=== PATIENT | female | born 1960 | race Caucasian/White ===

== ENCOUNTER 2022-01-10 18:08 | Emergency (ER) | payer OTHER, MEDICAID ==
[~2022-01-10] VITALS: Ht 152 cm; Wt 81.0 kg
[2022-01-10 18:52] LABS: BASOPHILS % (AUTO) 0 % (0-10); EOSINOPHILS # (AUTO) 0.3 10^3/uL (0.0-0.3); EOSINOPHILS % (AUTO) 3 % (0-10); HEMATOCRIT 34 % (35-52); HEMOGLOBIN 11.2 g/dL (11.5-16.0); LYMPHOCYTES # (AUTO) 2.2 10^3/uL (1.0-4.0); LYMPHOCYTES % (AUTO) 21 % (12-44); MEAN CORPUSCULAR HEMOGLOBIN 29 pg (25-34); MEAN CORPUSCULAR HGB CONC 33 g/dL (32-36); MEAN CORPUSCULAR VOLUME 87 fL (80-99); MEAN PLATELET VOLUME 12.3 fL (9.0-12.2); MONOCYTES # (AUTO) 1.2 10^3/uL (0.0-1.0); MONOCYTES % (AUTO) 11 % (0-12); NEUTROPHILS # (AUTO) 6.7 10^3/uL (1.8-7.8); NEUTROPHILS % (AUTO) 64 % (42-75); PLATELET COUNT 173 10^3/uL (130-400); WHITE BLOOD COUNT 10.5 10^3/uL (4.3-11.0)
--- NOTE | 2022-01-10 19:10 | ED Syncope ---
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 Starting January 07 she developed sore throat. Then yesterday she developed cough which has been worsening. She has a pain or pressure in the left chest with cough. She has had fevers running 99.6 up to 101. She denies any nausea, vomiting, or diarrhea. Today she got up from her recliner during a coughing fit. She woke on her kitchen floor. She does not know how much time has passed. She has no traumatic pain and does not feel she was injured in any way. She has 1 prior remote episode of syncope several years ago. She denies any significant prodrome of lightheadedness, dizziness, chest pain, etc. She does note the coughing fit prior to the syncope. She has recently moved to the area and has not established with a primary care provider yet. She had gastric bypass surgery 2 years ago and has lost a significant amount of weight resulting in improved general health. Allergies and Home Medications Allergies Coded Allergies: Sulfa (Sulfonamide Antibiotics) (Verified Allergy, Intermediate, Rash, 01/10/22) Hives clindamycin (Verified Allergy, Intermediate, Rash, 01/10/22) Hives hydrochlorothiazide (Verified Allergy, Intermediate, Rash, 01/10/22) Hives ibuprofen (Verified Allergy, Intermediate, Rash, 01/10/22) Blood pressure changes, Hives lisinopril (Verified Allergy, Intermediate, Rash, 01/10/22) Hives Patient Home Medication List Home Medication List Reviewed: Yes Azithromycin (Azithromycin) 250 Mg Tablet, 250 MG PO DAILY Prescribed by: MAYNOR GALLAGHER on 01/10/222102 Benzonatate (Tessalon Perles) 100 Mg Capsule, 200 MG PO TID PRN for COUGH Prescribed by: MAYNOR GALLAGHER on 01/10/222102 Review of Systems Constitutional: see HPI EENTM: no symptoms reported Respiratory: see HPI Cardiovascular: see HPI Gastrointestinal: no symptoms reported Genitourinary: no symptoms reported : No Musculoskeletal: no symptoms reported Skin: no symptoms reported Psychiatric/Neurological: No Symptoms Reported Past [id number] Hx Patient Social History Tobacco Use?: No Use of E-Cig and/or Vaping dev: No Substance use?: No Alcohol Use?: No Pt feels they are or have been: No Immunizations Up To Date Influenza Vaccine Up-to-Date: No; Not Current First/Initial COVID19 Vaccinat: 2020 Second COVID19 Vaccination Cosme: 2020 Third COVID19 Vaccination Date: 2021 COVID19 Vaccine Net Fisher: GRUZOBZOR Past Medical History Surgery/Hospitalization HX: ASTHMA, OSTEOPOROSIS GASTRIC BYPASS, Surgeries: Yes Abdominal (Gastric bypass), Joint Replacement (Total left knee) Respiratory: Yes Asthma Cardiac: Yes Hypertension (Resolved with weight loss) Neurological: No : No Reproductive Disorders: No Genitourinary: No Gastrointestinal: Yes (History gastric bypass surgery) Gastroesophageal Reflux Musculoskeletal: Yes Osteoporosis, Arthritis (Left knee joint replacement) Endocrine: No HEENT: No Cancer: No Psychosocial: No Integumentary: No Physical Exam Vital Signs Vital Signs - First Documented 01/10/22 18:27 Temp 38.2 Pulse 76 Resp 16 B/P (MAP) 122/73 (89) Capillary Refill : Height, Weight, BMI Height: '" Weight: lbs. oz. kg; 35.00 BMI Method: General Appearance: No Apparent Distress, WD/WN HEENT: PERRL/EOMI, Normal ENT Inspection, Other (Oropharynx somewhat dry) Neck: Normal Inspection; No JVD Cardiovascular: Regular Rate, Rhythm, No Edema, No Murmur Respiratory: Lungs Clear, Normal Breath Sounds, No Accessory Muscle Use, Other (Dry cough. Deep breathing triggers cough.) Gastrointestinal: Normal Bowel Sounds, Non Tender, Soft Extremities: Normal Inspection, Non Tender, No Calf Tenderness, No Pedal Edema Neurologic/Psychiatric: Alert, Oriented x3, No Motor/Sensory Deficits, Normal Mood/Affect Cranial Nerves: Normal Hearing, Normal Speech Coordination/Gait: Normal Gait Motor/Sensory: No Motor Deficit Skin: Normal Color, Warm/Dry Progress/Results/Core Measures Results/Orders Lab Results Laboratory Tests Test 8/4/22 18:40 01/10/22 18:45 01/10/22 19:02 01/10/22 19:20 Range/Units Influenza Type A (RT-PCR) Not Detected Not Detecte Influenza Type B (RT-PCR) Not Detected Not Detecte SARS-CoV-2 RNA (RT-PCR) Not Detected Not Detecte White Blood Count 10.5 4.3-11.0 10^3/uL Red Blood Count 3.86 3.80-5.11 10^6/uL Hemoglobin 11.2 L 11.5-16.0 g/dL Hematocrit 34 L 35-52 % Mean Corpuscular Volume 87 80-99 fL Mean Corpuscular Hemoglobin 29 25-34 pg Mean Corpuscular Hemoglobin Concent 33 32-36 g/dL Red Cell Distribution Width 13.2 10.0-14.5 % Platelet Count 173 130-400 10^3/uL Mean Platelet Volume 12.3 H 9.0-12.2 fL Immature Granulocyte % (Auto) 0 % Neutrophils (%) (Auto) 64 42-75 % Lymphocytes (%) (Auto) 21 12-44 % Monocytes (%) (Auto) 11 0-12 % Eosinophils (%) (Auto) 3 0-10 % Basophils (%) (Auto) 0 0-10 % Neutrophils # (Auto) 6.7 1.8-7.8 10^3/uL Lymphocytes # (Auto) 2.2 1.0-4.0 10^3/uL Monocytes # (Auto) 1.2 H 0.0-1.0 10^3/uL Eosinophils # (Auto) 0.3 0.0-0.3 10^3/uL Basophils # (Auto) 0.0 0.0-0.1 10^3/uL Immature Granulocyte # (Auto) 0.0 0.0-0.1 10^3/uL Sodium Level 139 135-145 MMOL/L Potassium Level 3.7 3.6-5.0 MMOL/L Chloride Level 105 98-107 MMOL/L Carbon Dioxide Level 25 21-32 MMOL/L Anion Gap 9 5-14 MMOL/L Blood Urea Nitrogen 9 7-18 MG/DL Creatinine 0.65 0.60-1.30 MG/DL Estimat Glomerular Filtration Rate 101 BUN/Creatinine Ratio 14 Glucose Level 120 H 70-105 MG/DL Calcium Level 8.5 8.5-10.1 MG/DL Corrected Calcium 8.9 8.5-10.1 MG/DL Magnesium Level 1.9 1.6-2.4 MG/DL Total Bilirubin 0.9 0.1-1.0 MG/DL Aspartate Amino Transf (AST/SGOT) 27 5-34 U/L Alanine Aminotransferase (ALT/SGPT) 20 0-55 U/L Alkaline Phosphatase 83 40-136 U/L Myoglobin 23.7 10.0-92.0 NG/ML Troponin I < 0.028 <0.028 NG/ML C-Reactive Protein High Sensitivity 6.10 H 0.00-0.50 MG/DL Total Protein 6.3 L 6.4-8.2 GM/DL Albumin 3.5 3.2-4.5 GM/DL Urine Color YELLOW Urine Clarity CLEAR Urine pH 6.0 5-9 Urine Specific Viking 1.015 L 1.016-1.022 Urine Protein NEGATIVE NEGATIVE Urine Glucose (UA) NEGATIVE NEGATIVE Urine Ketones NEGATIVE NEGATIVE Urine Nitrite NEGATIVE NEGATIVE Urine Bilirubin NEGATIVE NEGATIVE Urine Urobilinogen >=8.0 < = 1.0 MG/DL Urine Leukocyte Esterase 1+ H NEGATIVE Urine RBC (Auto) NEGATIVE NEGATIVE Urine RBC NONE /HPF Urine WBC 2-5 /HPF Urine Squamous Epithelial Cells 2-5 /HPF Urine Crystals NONE /LPF Urine Bacteria FEW H /HPF Urine Casts NONE /LPF Urine Mucus SMALL H /LPF Urine Culture Indicated YES Prothrombin Time 15.2 H 12.2-14.7 SEC INR Comment 1.2 0.8-1.4 Activated Partial Thromboplast Time 20 L 24-35 SEC My Orders Orders - MAYNOR KELLEY MD Cbc With Automated Diff (01/10/22 18:18) Comprehensive Metabolic Panel (01/10/22 18:18) Hs C Reactive Protein (01/10/22 18:18) Ua Culture If Indicated (01/10/22 18:18) Ed Iv/Invasive Line Start (01/10/22 18:18) Monitor-Rhythm Ecg Trace Only (01/10/22 18:18) Covid 19 Inhouse Test (01/10/22 18:18) Influenza A And B By Pcr (01/10/22 18:18) Chest 1 View, Ap/Pa Only (01/10/22 19:00) Ekg Tracing (01/10/22 19:00) Protime With Inr (01/10/22 19:00) Partial Thromboplastin Time (01/10/22 19:00) O2 (01/10/22 19:00) Lipid Panel (01/11/22 06:00) Orthostatic Vital Signs (Adult (01/10/22 19:00) Magnesium (01/10/22 18:45) Myoglobin Serum (01/10/22 18:45) Troponin I [place]th (01/10/22 18:45) Ed Iv/Invasive Line Start (01/10/22 19:12) Lactated Ringers (Lr 1000 Ml Iv Solution (01/10/22 19:15) Urine Culture (01/10/22 19:02) Benzonatate Capsule (Tessalon Perles) (01/10/22 20:57) Albuterol Inhaler (Albuterol) (01/10/22 20:57) Azithromycin Tablet (Zithromax Tablet) (01/10/22 20:57) Medications Given in ED Current Medications Medications Dose Ordered Sig/Nasra Route Start Time Stop Time Status Last Admin Dose Admin Lactated Ringer's 1,000 ml @ 0 mls/hr Q0M ONCE IV 01/10/22 19:15 01/10/22 19:16 DC 01/10/22 19:36 1,000 MLS/HR Vital Signs/I&O 01/10/22 01/10/22 18:27 19:58 Temp 38.2 Pulse 76 86 106 107 Resp 16 B/P (MAP) 122/73 (89) 130/63 (85) 121/96 (104) 118/92 (101) Blood Pressure Mean: 89 Progress Progress Note : Progress Note Work-up was relatively unremarkable. Chest x-ray did suggest bronchitis. There was a modest elevation in CRP. Azithromycin was administered for possible occult pneumonia based on symptoms and elevated CRP. Albuterol inhaler was dispensed. Tessalon Perles were prescribed and administered in the ER. See discharge instructions for further discussion. COVID-19 and influenza swabs were negative. Initial ECG Impression Date: Jan 10, 2022 Initial ECG Impression Time: 19:23 Initial ECG Rate: 63 Initial ECG Rhythm: Normal Sinus Initial ECG Intervals: Normal Initial ECG Impression: Normal Comment Normal sinus rhythm with no ST elevation or depression. No abnormal intervals or axis deviation. Diagnostic Imaging Diagonstic Imaging: Xray Plain Films/CT/US/NM/MRI: chest Comments Chest x-ray viewed by me and report reviewed. See report below: NAME: JAYNE EDMONDSON REC#: [id number] PT STATUS: REG ER : 1960 PHYSICIAN: MAYNOR KELLEY MD ADMIT DATE: 01/10/22/ER Signed Date of Exam:01/10/22 CHEST 1 VIEW, AP/PA ONLY INDICATION: Cough. COMPARISON: No comparison available. FINDINGS: There is no dense alveolar consolidation. There is some mild thickening of the perihilar interstitial markings which could be chronic or could relate to a bronchitis. There is no significant effusion. There is no pneumothorax. Heart size appears appropriate without current evidence of failure. IMPRESSION: Mild central interstitial prominence which may be chronic or could conceivably relate to small airways disease such as bronchitis. There is no alveolar pneumonia or effusion. There are no findings to suggest edema. Dictated by: Dictated on workstation # [id number] Dict: 01/10/221958 Trans: 01/10/222017 [facility] [id number] Interpreted by: JENARO CONTRERAS MD Electronically signed by: JENARO CONTRERAS MD 01/10/222017 Departure Impression Primary Impression: Acute bronchitis Qualified Codes: J20.9 - Acute bronchitis, unspecified Additional Impressions: Syncope Qualified Codes: R55 - Syncope and collapse Atypical chest pain Disposition: 01 HOME, SELF-CARE Condition: Improved Departure-Patient Inst. Decision time for Depature: 21:00 Referrals: NO,LOCAL PHYSICIAN (PCP/Family) Primary Care Physician Patient Instructions: Acute Bronchitis, Syncope (Fainting) Add. Discharge Instructions: Drink plenty of clear liquids to stay well-hydrated. You may use Tessalon Perles as prescribed for cough. Complete your antibiotic as prescribed. Take your next dose tomorrow evening. If you have any severe coughing fits in the future, take the albuterol inhaler (2 to 4 puffs) and sit down in a safe place to prevent any further fainting episodes that could cause injury. It is suspected that your syncopal episode (fainting) was due to a vasovagal response. Use your inhaler up to 4 puffs in a 4-hour period of time for wheezing or uncontrolled cough. Use Tylenol (acetaminophen) up to 1000 mg every 6 hours as needed for discomfort or fever. Establish with a primary care provider soon as possible and to follow-up for reevaluation. Return to the ER if you have worsening symptoms despite following these instructions All discharge instructions reviewed with patient and/or family. Voiced underst anding. Scripts Benzonatate (TESSALON PERLES) 100 Mg Capsule 200 MG PO TID PRN for COUGH, #20 CAP Prov: MAYNOR KELLEY MD 01/10/22 Azithromycin (Azithromycin) 250 Mg Tablet 250 MG PO DAILY, #4 TAB 0 Refills Prov: MAYNOR KELLEY MD 01/10/22 MAYNOR KELLEY MD Jan 10, 2022 19:10
[2022-01-10] MEDS ORDERED: LACTATED RINGERS 1,000 ML IV ONE (19:15)
[2022-01-10 19:16] LABS: BILIRUBIN,URINE NEGATIVE (NEGATIVE); CLARITY,URINE CLEAR; COLOR,URINE YELLOW; GLUCOSE, URINE (UA) NEGATIVE (NEGATIVE); KETONES,URINE NEGATIVE (NEGATIVE); LEUKOCYTE ESTERASE ,URINE 1+ (NEGATIVE); NITRITE,URINE NEGATIVE (NEGATIVE); PROTEIN,URINE NEGATIVE (NEGATIVE)
[2022-01-10 19:19] LABS: ALBUMIN 3.5 GM/DL (3.2-4.5); CHLORIDE 105 MMOL/L (98-107); POTASSIUM 3.7 MMOL/L (3.6-5.0); SODIUM 139 MMOL/L (135-145)
[2022-01-10 19:20] LABS: CALCIUM 8.5 MG/DL (8.5-10.1)
[2022-01-10 19:21] LABS: GLUCOSE 120 MG/DL (70-105)
[2022-01-10 19:22] LABS: TOTAL PROTEIN 6.3 GM/DL (6.4-8.2)
[2022-01-10 19:23] LABS: BILIRUBIN,TOTAL 0.9 MG/DL (0.1-1.0); CARBON DIOXIDE 25 MMOL/L (21-32)
[2022-01-10 19:25] LABS: ALKALINE PHOSPHATASE 83 U/L (40-136); CREATININE SERUM 0.65 MG/DL (0.60-1.30); GFR ESTIMATED 101
[2022-01-10 19:26] LABS: BUN/CREATININE RATIO 14
[2022-01-10 19:28] LABS: ALANINE AMINOTRANSFERASE 20 U/L (0-55); MAGNESIUM 1.9 MG/DL (1.6-2.4)
[2022-01-10 19:58] VITALS: BP_SYST 118; BP_SYST 121; BP_SYST 130; BP_DIAS 63; BP_DIAS 92; BP_DIAS 96
[2022-01-10 19:59] LABS: INR 1.2 (0.8-1.4); PROTHROMBIN TIME PATIENT 15.2 SEC (12.2-14.7)
[2022-01-10 20:03] LABS: BACTERIA,URINE FEW /HPF
--- NOTE | 2022-01-10 20:03 | Diagnostic Imaging Report ---
INDICATION: Cough. COMPARISON: No comparison available. FINDINGS: There is no dense alveolar consolidation. There is some mild thickening of the perihilar interstitial markings which could be chronic or could relate to a bronchitis. There is no significant effusion. There is no pneumothorax. Heart size appears appropriate without current evidence of failure. IMPRESSION: Mild central interstitial prominence which may be chronic or could conceivably relate to small airways disease such as bronchitis. There is no alveolar pneumonia or effusion. There are no findings to suggest edema. Dictated by: Dictated on workstation # [id number]
[2022-01-10] MEDS ORDERED: RT-ALBUTEROL HFA 8.5 GM INHALER IH STA (20:57)
[2022-01-10] MEDS ORDERED: AZITHROMYCIN 250 MG TAB (ZITHROMAX) PO STA (20:57)
[2022-01-10] MEDS ORDERED: BENZONATATE 100 MG (TESSALON) CAPSULE PO STA (20:57)
[2022-01-10] MEDS ORDERED: AZIT250T12 PO (21:03)
[2022-01-10] MEDS ORDERED: BENZ100C18 PO (21:03)
[2022-01-10 21:07] VITALS: BP 117/87
== END 2022-01-10 21:12 | disposition home or self-care (01) ==
LOC: ER 18:15
DX: J45.909 Unspecified asthma, uncomplicated (principal); R55 Syncope and collapse; R79.82 Elevated C-reactive protein (CRP); Z20.822 Contact with and (suspected) exposure to COVID-19
CPT/HCPCS: 36415; 71045; 80053; 81000; 83735; 83874; 84484; 85025; 85610; 85730; 86141; 87088; 87636; 93005; 93041

== ENCOUNTER 2022-01-17 02:43 | Emergency (ER) | payer OTHER, MEDICAID ==
[~2022-01-17 02:43] MED LIST: AZIT250T12 PO; BENZ100C18 PO
[2022-01-17] MEDS ORDERED: PRD20T PO (05:19)
== END 2022-01-17 03:50 | disposition left against medical advice (07) ==
LOC: EDUNIT# 02:43 → ER 02:47
DX: R21 Rash and other nonspecific skin eruption (principal)

== ENCOUNTER 2022-01-17 04:52 | Emergency (ER) | payer OTHER, MEDICAID ==
[~2022-01-17] VITALS: Ht 153 cm; Wt 80.1 kg
[2022-01-17 05:00] VITALS: BP 161/82
[2022-01-17] MEDS ORDERED: predniSONE 20 MG TAB PO ONE (05:15)
[2022-01-17] MEDS ORDERED: PRD20T PO (05:19)
--- NOTE | 2022-01-17 05:20 | ED Integumentary General ---
General Chief Complaint: Allergic Reaction Stated Complaint: RASH Nursing Triage Note: Pt states that she was seen in the ER at [place] about a week ago and put on EES for bronchitis and possible pneumonia. She finished the abx on Friday and Friday AM woke up with a rash on her legs. Since then the rash has moved to all four extremities and her trunk as well. Rash is raised and itchy. 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 No acute distress noted, no respiratory involvement. Pt states that she went to the ER in [place] this AM but left without being seen d/t the long wait. Source: patient Exam Limitations: no limitations History of Present Illness Date Seen by Provider: Jan 17, 2022 Time Seen by Provider: 05:16 Initial Comments Patient is a 61-year-old female who presents with itching and diffuse macular rash to extremities and torso after starting erythromycin several days ago for treatment of bronchitis. Bronchitis is now improved. Patient denies shortness of breath airway swelling, wheezing. No other symptoms or complaints. Patient took Benadryl prior to ED arrival with improvement. Timing/Duration: yesterday Severity: mild Location: generalized Possible Cause: other Modifying Factors: improves with other Associated Symptoms: other Allergies and Home Medications Allergies Coded Allergies: Sulfa (Sulfonamide Antibiotics) (Verified Allergy, Intermediate, Rash, 01/10/22) Hives clindamycin (Verified Allergy, Intermediate, Rash, 01/10/22) Hives hydrochlorothiazide (Verified Allergy, Intermediate, Rash, 01/10/22) Hives ibuprofen (Verified Allergy, Intermediate, Rash, 01/10/22) Blood pressure changes, Hives lisinopril (Verified Allergy, Intermediate, Rash, 01/10/22) Hives Patient Home Medication List Home Medication List Reviewed: Yes Azithromycin (Azithromycin) 250 Mg Tablet, 250 MG PO DAILY Prescribed by: MAYNOR GALLAGHER on 01/10/222102 Benzonatate (Tessalon Perles) 100 Mg Capsule, 200 MG PO TID PRN for COUGH Prescribed by: MAYNOR GALLAGHER on 01/10/222102 Review of Systems Review of Systems Constitutional: see HPI EENTM: see HPI Respiratory: see HPI Cardiovascular: see HPI Gastrointestinal: see HPI Genitourinary: see HPI Musculoskeletal: see HPI Skin: see HPI Psychiatric/Neurological: See HPI Endocrine: See HPI Hematologic/Lymphatic: See HPI All Other Systems Reviewed Negative Unless Noted: Yes Past [id number] Hx Patient Social History Tobacco Use?: No Use of E-Cig and/or Vaping dev: No Substance use?: No Alcohol Use?: No Pt feels they are or have been: No Immunizations Up To Date First/Initial COVID19 Vaccinat: 2020 Second COVID19 Vaccination Cosme: 2020 Third COVID19 Vaccination Date: 2021 Past Medical History Surgery/Hospitalization HX: ASTHMA, OSTEOPOROSIS GASTRIC BYPASS, Surgeries: Yes Abdominal, Joint Replacement Respiratory: Yes Asthma Cardiac: Yes Hypertension Neurological: No Reproductive Disorders: No Genitourinary: No Gastrointestinal: Yes (History gastric bypass surgery) Gastroesophageal Reflux Musculoskeletal: Yes Osteoporosis, Arthritis Endocrine: No HEENT: No Cancer: No Psychosocial: No Integumentary: No Physical Exam Vital Signs Vital Signs - First Documented 01/17/22 05:00 Temp 36.4 Pulse 56 Resp 18 B/P (MAP) 161/82 (108) Pulse Ox 100 O2 Delivery Room Air Capillary Refill : Less Than 3 Seconds General Appearance: WD/WN, no apparent distress HEENT: PERRL/EOMI, normal ENT inspection Neck: full range of motion, supple Cardiovascular: normal peripheral pulses, regular rate, rhythm Respiratory: chest non-tender, lungs clear Gastrointestinal: non tender, soft 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 Prednisone given. Recommendations are supportive care watchful waiting PCP follow-up. Impression Primary Impression: Allergic reaction Disposition: HOME, SELF-CARE Condition: Stable Departure-Patient Inst. Decision time for Depature: 05:19 Referrals: NO,LOCAL PHYSICIAN (PCP/Family) Primary Care Physician Patient Instructions: Drug Allergy Add. Discharge Instructions: Please continue 50 mg of Benadryl every 6-8 hours for treatment of itching and complete full course of steroids. Follow-up with your PCP in 2 to 3 days for reevaluation if symptoms persist. Return to the ED if new or worsening symptoms. All discharge instructions reviewed with patient and/or family. Voiced understanding. Scripts Prednisone (Prednisone) 20 Mg Tab 40 MG PO DAILY, #6 TAB 0 Refills Prov: EDDI ZENG DO 01/17/22 EDDI ZENG DO Jan 17, 2022 05:19
== END 2022-01-17 05:25 | disposition home or self-care (01) ==
LOC: EDUNIT# 04:52 → ER FS 04:55
DX: R21 Rash and other nonspecific skin eruption (principal); T36.3X5A Adverse effect of macrolides, initial encounter
CPT/HCPCS: 99283